=== PATIENT | male | born 1980 | race Caucasian/White ===

== ENCOUNTER → 2017-02-21 | Outpatient (CLI) | payer BC ==
[~2017-02-21] MED LIST: BLOOD PRESSURE MEDS; NO MEDICATIONS; PHENERGAN W/CO120 ML PO
--- NOTE | ~2017-02-21 | CT69 ---
[facility] A Service of [facility] RADIOLOGY TEXT RESULTS PATIENT: SHELTON ROB LOCATION: [facility] : [birth year] UNIT #: [id number] AGE: [address]: Dilan Harry MD SEX: M ORDER DR: [id number] [address] [id number] O MR#: [id number] Acc #: [id number] NAME: SHELTON ROB : 1980 SEX: M STUDY DATE/TIME: 02/21/2017 16:55 UNIT: [facility] ROOM: STUDY DESCRIPTION: CT Head W Contrast Attending Physician: Dilan aHrry M.D. Referring Physician: Dilan Harry M.D. Ordering Physician: Dilan Harry M.D. Primary Care Physician: Dilan Harry M.D. MEDICAL IMAGING REPORT This report is preliminary unless electronic signature is present. EXAM CT of the head, 02/21/17. HISTORY Severe headaches every morning, frontal forehead, occipital area. TECHNIQUE CT of the head performed with intravenous administration 100 mL Isovue-370. This CT exam was performed with one or more of the following radiation dose reduction techniques: automatic exposure control, adjustment of mA and/or kV according to patient size, and iterative reconstruction. COMPARISON No comparisons. FINDINGS Multiple images degraded by streak/motion artifact. The brainstem is unremarkable. Cerebellum and cerebral hemispheres show normal hayden matter-white matter differentiation. No hemorrhage. No evidence of acute cortical ischemia. The midline structures are nondisplaced. Basal ganglia intact. Ventricles, cisterns and sulci normal in size and contour. No intra or extraaxial mass effect or abnormal intracranial fluid collection. No enhancing brain parenchymal abnormality. This examination was not tailored for assessment of the vascular structures. No gross vascular abnormality is seen. The visualized paranasal sinuses and mastoid air cells are clear. No fracture. Extracranial soft tissues unremarkable. IMPRESSION 1. No acute abnormality is seen in the brain. If the patient has ongoing neurologic symptoms, consider follow up imaging, preferably with MRI if the patient is a candidate. [facility] A Service of [facility] & [facility] RADIOLOGY TEXT RESULTS PATIENT: SHELTON ROB LOCATION: [facility] : [birth year] UNIT #: [id number] AGE: [address]: Dilan Harry MD SEX: M ORDER DR: 2. Visualized paranasal sinuses and mastoid air cells clear. Dictated by... Gustabo Arriaga M.D. THIS IS AN ELECTRONICALLY VERIFIED REPORT Gustabo Arriaga M.D. at 02/23/2017 10:29 PM Anibal TD: 02/21/2017 23:27 JOB #: [id number] MEDICAL IMAGING REPORT Page 1 of 1
== END | disposition home or self-care (01) ==
LOC: SCT 16:15
DX: R51 Headache (principal)
CPT/HCPCS: 70460; Q9967

== ENCOUNTER 2017-06-10 19:07 | Emergency (ER) | payer OTHER, BC ==
[~2017-06-10] VITALS: Ht 175.3 cm; Wt 79.4 kg
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
[~2017-06-10 19:07] MED LIST changes: -BLOOD PRESSURE MEDS
[2017-06-10] MEDS ORDERED: BLOOD PRESSURE MEDS (19:39)
[2017-06-10 20:45] LABS: AMPHETAMINE NEG (NEG); BARBITURATES NEG (NEG); BENZODIAZEPINES NEG (NEG); COCAINE NEG (NEG); MARIJUANA NEG (NEG); OPIATES NEG (NEG); TRICYCLIC ANTIDEPRESSANTS NEG (NEG); U METHADONE NEG (NEG)
[2017-06-10 21:27] LABS: URINE SOURCE CLEAN CATCH
[2017-06-10 21:30] LABS: URINE APPEARANCE CLEAR; URINE BILIRUBIN NEG (NEG); URINE BLOOD NEG (NEG); URINE COLOR YELLOW; URINE GLUCOSE NEG (NORM); URINE KETONE NEG (NEG); URINE LEUKOCYTE ESTERASE NEG (NEG); URINE NITRATE NEG (NEG); URINE PROTEIN NEG (NEG); URINE SPECIFIC GRAVITY 1.015 (1.003-1.035); URINE UROBILINOGEN 0.2 MG/DL (NORM)
[2017-06-10 21:31] LABS: MICRO INDICATED? NO
== END 2017-06-10 23:19 | disposition home or self-care (01) ==
LOC: SED 19:07
PROVIDERS: Nurse Practitioner
DX: S06.0X9A Concussion with loss of consciousness of unspecified duration, initial encounter (principal); S13.4XXA Sprain of ligaments of cervical spine, initial encounter; S40.012A Contusion of left shoulder, initial encounter; I10 Essential (primary) hypertension; F17.210 Nicotine dependence, cigarettes, uncomplicated; V44.5XXA Car driver injured in collision with heavy transport vehicle or bus in traffic accident, initial encounter; Y93.89 Activity, other specified; Y92.410 Unspecified street and highway as the place of occurrence of the external cause
CPT/HCPCS: 70450; 72125; 80307; 81003; 99284